=== PATIENT | male | born 1995 | race Two or more races ===

== ENCOUNTER 2017-06-07 19:13 | Emergency (ER) | payer MEDICAID ==
[~2017-06-07] VITALS: Ht 177.8 cm; Wt 72.0 kg
[2017-06-07] MEDS: LIDOCAINE HCL 1% 20ML VIAL (Pyxis) INJ INFIL ONE (00:30)
[2017-06-07 19:44] VITALS: BP 118/75
[2017-06-07] MEDS: TETANUS, DIPHTHERIA, PERTUSSIS VAC/PF 0.5ML (>7YR OLD) IM ONE (21:19)
[2017-06-07] MEDS: ACETAMINOPHEN 325MG TABLET PO ONE (21:20)
[2017-06-08] MEDS: BACITRACIN ZINC OINT UDPKT TOP ONE (01:20)
== END 2017-06-08 01:30 | disposition home or self-care (01) ==
LOC: ER 19:44
DX: S61.411A Laceration without foreign body of right hand, initial encounter (principal); W27.0XXA Contact with workbench tool, initial encounter; Y93.89 Activity, other specified; Y92.89 Other specified places as the place of occurrence of the external cause; Y99.8 Other external cause status
CPT/HCPCS: 12002; 73130; 90471; 90715; 99284; J3490; X7700; Z7610

== ENCOUNTER 2017-06-10 06:12 | Emergency (ER) | payer MEDICAID ==
[~2017-06-10] VITALS: Ht 170.2 cm; Wt 67.0 kg
[2017-06-10] MEDS ORDERED: HYDROCODONE/ACETAMINOPHEN 5/325MG TABLET PO ONE (08:30)
[2017-06-10] MEDS ORDERED: CEPHALEXIN 500MG CAPSULE PO ONE (08:30)
[2017-06-10] MEDS ORDERED: ONDANSETRON 4MG ODT PO ONE (08:30)
[2017-06-10 08:51] VITALS: BP 106/41
== END 2017-06-10 09:16 | disposition home or self-care (01) ==
LOC: ER 07:18
DX: S56.423A Laceration of extensor muscle, fascia and tendon of right middle finger at forearm level, initial encounter (principal); X58.XXXA Exposure to other specified factors, initial encounter; Y93.89 Activity, other specified; Y92.89 Other specified places as the place of occurrence of the external cause; Y99.8 Other external cause status
CPT/HCPCS: 29130; 99284; Q0162